=== PATIENT | male | born 1955 ===

== ENCOUNTER 2017-08-21 11:14 | Outpatient (CLI) | payer MEDICARE, MEDICAID ==
[~2017-08-21] VITALS: Ht 170.2 cm; Wt 81.8 kg
--- NOTE | ~2017-08-21 | HEMODYNAMI ---
PATIENT:SANTANA FERNÁNDEZ MEDICAL RECORD: [id number] : 57 LOCATION:[facility] ADMISSION DATE: 08/21/17 Generatedon:08/21/201713:12 Patient name: SANTANA FERNÁNDEZ Patient #: [id number] SSN: DO B: 1955 Date of study: 08/21/2017 Page: Of Hemodynamic Procedure Report Patient Data Patient Demographics Procedure consent was obtained First Name: SANTANA Gender: Male Last Name: PRADEEP : 1955 [facility] Initial: J Age: 61 year(s) Patient #: [id number] Race: Unknown Additional ID: [id number] Contact details [address]: [address] [place] [address] State: [place] City: [place] Zip code: [address] Past Medical History Allergies: No known allergies Admission Admission Data Admission Date: 08/21/2017 Admission Time: 11:14 Lab Results Lab Result Date: 08/21/2017 Lab Result Time: 0:00 Biochemistry Name Units Result Min Max BUN mg/dl 12 --(-*--)-- 7 18 Creatinine mg/dl 0.9 --(-*--)-- 0.6 1.3 CBC Name Units Result Min Max Hemoglobin g/dl 12.6 -*(----)-- 13.5 17.5 Procedure Procedure Types Cath Procedure Diagnostic Procedure [facility] w/Coronaries Sedation Charges Moderate Sedation up to 15 minutes Procedure Description Procedure Date Procedure Date: 08/21/2017 Procedure Start Time: 12:55 Procedure End Time: 13:10 Procedure Staff Name Function Lb Tejada MD Performing Physician Stephanie Berman RT Monitor Corrine Ferraro RN Nurse Kurt Caraballo RT Scrub Procedure Data Cath Procedure Fluoroscopy Diagnostic fluoroscopy Total fluoroscopy Time: 1.7 time: 1.7 min min Diagnostic fluoroscopy Total fluoroscopy dose: 725 dose: 725 mGy mGy Contrast Material Contrast Material Type Amount (ml) Isovue 370 76 Entry Location Entry Primary Successful Side Size Upsize Upsize Entry Closure Succes sful Closure Location (Fr) 1 (Fr) 2 (Fr) Remarks Device Remarks Femoral Right 5 Fr Exoseal artery Estimated blood loss: 5 ml Diagnostic catheters Device Type Used For End Catheter Placement MULTIPACK JL 4.0 5Fr Procedure catheter MULTIPACK 3DRC 5Fr Procedure catheter MULTIPACK Pigtail 5 Fr Procedure catheter Procedure Complications No complications Procedure Medications Medication Administration Route Dosage Oxygen NC 2 l/min Lidocaine 2% added to field 20 Heparin Flush Bag added to field 2 bags (1000units/500ml NS) 0.9% NaCl I.V. 100 ml/hr Versed I.V. 1 mg Fentanyl I.V. 50 mcg Versed I.V. 0.5 mg Fentanyl I.V. 25 mcg Hemodynamics Rest HGB: 12.6 (g/dl) Heart Rate: 50 (bpm) Pressure Samples Time Site Value (mmHg) Purpose Heart Use Rate(bpm) 13:02 LV 142/8,29 Snapshot 55 13:03 AO 140/79(105) Pullback 58 13:03 LV 144/10,32 Pullback 58 Gradients Valve Time Site 1 Site 2 Mean SEP/DFP Peak To Heart Use (mmHg) (sec/min) Peak Rate (mmHg) (bpm) Aortic 13:03 LV AO 8 16 4 58 144/10,32 140/79(105) Calculations Valve P-P Mean Valve Index Valve Source Name Gradient Area Flow (cm2) Aortic 4 8 4 8 Snapshots Pre Cath Intra NCS Post Cath Vital Signs Time Heart Resp SPO2 etCO2 NIBP (mmHg) Rhythm Pain Sedation Rate (ipm) (%) (mmHg) Status Level (bpm) 12:43:00 49 17 96 0 No Cuff NSR 0 (11) 10(A) , No pain 12:44:24 49 16 96 0 159/103(144) NSR 0 (11) 10(A) , No pain 12:49:10 50 15 99 0 157/95(137) NSR 0 (11) 10(A) , No pain 12:53:53 53 13 98 0 144/96(122) NSR 0 (11) 9(A) , No pain 12:58:38 53 14 99 0 137/95(111) NSR 0 (11) 9(A) , No pain 13:03:14 58 12 99 0 125/90(113) NSR 0 (11) 9(A) , No pain 13:07:55 56 14 99 0 136/87(107) NSR 0 (11) 10(A) , No pain Medications Time Medication Route Dose Verified Delivered Reason Notes Effe ctiveness by by 12:46:43 Oxygen NC 2 Lb Buffie used for l/min Terrell Ferraro RN procedure 12:46:50 Lidocaine 2% added 20ml Lb Lb for local to vial Terrell Tejada MD anesthetic field 12:46:59 Heparin Flush added 2 Lb Lb used for Bag to bags Terrell Tejada MD procedure (1000units/500ml field NS) 12:47:07 0.9% NaCl I.V. 100 Lb Buffie Per ml/hr Terrell Ferraro RN physician 12:51:40 Versed I.V. 1 mg Lb Buffie for Terrell Ferraro RN sedation 12:51:46 Fentanyl I.V. 50 Lb Buffie for mcg Terrell Ferraro RN sedation 12:53:38 Versed I.V. 0.5 Lb Buffie for mg Terrell Ferraro RN sedation 12:53:42 Fentanyl I.V. 25 Lb Buffie for mcg Terrell Ferraro RN sedation Procedure Log Time Note 12:21:06 Kurt Caraballo RT(R) sent for patient. Start room use. 12:21:07 Time tracking: Regular hours (M-F 7:00 - 5:00) 12:21:12 Plan of Care:Hemodynamics will remain stable., Cardiac rhythm will remain stable., Comfort level will be maintained., Respiratory function will remain adequate., Patient/ family verbilizes understanding of procedure., Procedure tolerated without complication., Recovers from procedure without complications.. 12:32:25 Lab Result : BUN 12 mg/dl 12:32:25 Lab Result : Hemoglobin 12.6 g/dl 12:32:25 Lab Result : Creatinine 0.9 mg/dl 12:34:30 Patient received from Pre/Post Procedure Room to CCL 1 Alert and oriented. Tansferred to table in Supine position. 12:34:31 Warm blankets applied, and lorna hugger turned on for patient comfort. 12:34:32 Correct patient and procedure confirmed by team. 12:34:33 Signed procedure consent form obtained from patient. 12:34:35 ECG and BP/O2 sat monitors applied to patient. 12:42:09 Vital chart was started 12:46:43 Oxygen 2 l/min NC was administered by Corrine Ferraro RN; used for procedure; 12:46:50 Lidocaine 2% 20ml vial added to field was administered by Lb Tejada MD; for local anesthetic; 12:46:59 Heparin Flush Bag (1000units/500ml NS) 2 bags added to field was administered by Lb Tejada MD; used for procedure; 12:47:07 0.9% NaCl 100 ml/hr I.V. was administered by Corrine Ferraro RN; Per physician; 12:48:19 Baseline sample Acquired. 12:48:21 Rhythm: sinus bradycardia 12:48:23 Full Disclosure recording started 12:48:46 H&P Date Dictated: 08/21/2017 Within 30 days and on chart., H&P Addendum completed by physician on day of procedure. (MUST COMPLETE FOR ALL OUTPATIENTS). 12:48:48 Pre-procedure instructions explained to patient. 12:48:48 Pre-op teaching completed and patient verbalized understanding. 12:48:50 Family in patients room. 12:48:51 Patient NPO since Midnight. 12:49:02 Patient allergic to No known allergies 12:49:04 Is the patient allergic to Iodine/contrast media? No. 12:49:06 Is patient on blood thinner?No 12:49:08 Patient diabetic? Yes. 12:49:09 If diabetic: On Metformin? Yes 12:49:10 If on Metformin: Last Dose? 08/20/2017 12:49:14 Previous problem with sedation/anesthesia? No ? 12:49:14 Snore? Yes 12:49:15 Sleep apnea? Yes 12:49:16 Deviated septum? No 12:49:17 Opens mouth fully? Yes 12:49:18 Sticks out tongue? Yes 12:49:20 Airway obstruction? No ? 12:49:25 Dentures? No ? 12:49:29 Pre procedure: right dorsailis pedis pulse 1+ Palpable, but thready & weak; easily obliterated 12:49:32 Patient pain scale 0/10 ?. 12:49:41 IV patent on arrival in right forearm with 0.9% NaCl at [facility]. 12:49:44 Lab results completed and on chart. 12:49:47 Right groin area was prepped with chlora-prep and draped in sterile fashion 12:49:48 Alarms reviewed by R. N. 12:49:49 Sharps counted by scrub and verified by R.N. 12:49:50 --------ALL STOP TIME OUT------ 12:49:50 Final Timeout: patient, procedure, and site verified with staff and physician. All members of the team are in agreement. 12:49:52 Right groin site verified by team. 12:49:56 Physical assessment completed. ASA score P 2 - A patient with mild systemic disease as per Lb Tejada MD. 12:49:58 Sedation plan: IV Moderate Sedation Medication:Versed, Fentanyl 12:50:10 Use device set Femoral Dx 12:50:11 ACIST Syringe (34673) opened to sterile field. 12:50:12 Bag Decanter (2002S) opened to sterile field. 12:50:13 ACIST Hand Control (63497) opened to sterile field. 12:50:13 ACIST Manifold (97484) opened to sterile field. 12:50:14 Tegaderm 4 x 4 (1626W) opened to sterile field. 12:50:16 Medline Cath Pack ([id number]) opened to sterile field. 12:50:17 DIAGNOSTIC WIRE .035 260cm J wire (074641) opened to sterile field. 12:50:18 DIAGNOSTIC Multipack 5Fr catheter set ([id number]) opened to sterile field. 12:50:19 SHEATH Prelude 5Fr 0.035 ([id number]-46-035) opened to sterile field. 12:51:40 Versed 1 mg I.V. was administered by Corrine Ferraro RN; for sedation; 12:51:46 Fentanyl 50 mcg I.V. was administered by Corrine Ferraro RN; for sedation; 12:53:38 Versed 0.5 mg I.V. was administered by Corrine Ferraro RN; for sedation; 12:53:42 Fentanyl 25 mcg I.V. was administered by Corrine Ferraro RN; for sedation; 12:54:54 Procedure started. 12:55:01 Local anesthetic to right femoral artery with Lidocaine 2% by Lb Tejada MD.INITIAL ACCESS ONLY 12:55:16 A 5 Fr sheath was inserted into the Right Femoral artery 12:55:36 Zero performed for pressure channel P1 12:57:22 A MULTIPACK JL 4.0 5Fr catheter was advanced over the wire and used for Procedure. 12:59:09 LCA angiography performed. 12:59:26 Catheter exchanged over wire. 13:00:04 A MULTIPACK 3DRC 5Fr catheter was advanced over the wire and used for Procedure. 13:01:20 RCA angiography performed. 13:01:23 Catheter exchanged over wire. 13:02:00 A MULTIPACK Pigtail 5 Fr catheter was advanced over the wire and used for Procedure. 13:02:11 Injector settings: Ml/sec: 10, Volume: 20, 13:02:14 LV gram done using MANCILLA 13:03:11 LV hemodynamics recorded. 13:03:34 EF : 55 % 13:05:39 Catheter removed. 13:06:08 EXOSEAL 5Fr (EX500) opened to sterile field. 13:06:22 Sheath removed intact; hemostasis achieved with Exoseal to the Right Femoral artery. 13:07:16 Procedure ended.(Physican Out) 13:07:28 Fluoroscopy time 01.70 minutes. 13:07:31 Fluoroscopy dose: 725 mGy 13:07:31 Flurop Dose total: 725 13:07:37 Contrast amount:Isovue 370 76ml. 13:07:39 Sharps counted by scrub and verified by R.N. 13:07:42 Insertion/operative site no bleeding no hematoma. 13:07:45 Post-op/insertion site Right Femoral artery dressed using a 4 x 4 and Tegaderm. 13:07:49 Post right femoral artery:stable, soft, clean and dry 13:07:52 Post procedure: right dorsailis pedis pulse 1+ Palpable, but thready & weak; easily obliterated. 13:07:55 Post-procedure physical assessment completed. ASA score P 2 - A patient with mild systemic disease as per Lb Tejada MD. 13:07:57 Post procedure rhythm: unchanged. 13:07:59 Estimated blood loss: 5 ml 13:08:00 Post procedure instruction explained to patient.Patient verbalizes understanding. 13:08:02 Patient needs reinforcement of post procedure teaching. 13:08:42 Procedure type changed to Cath procedure, Diagnostic procedure, LHC, LHC w/Coronaries, Sedation Charges, Moderate Sedation up to 15 minutes 13:09:15 Procedure and supply charges have been captured, reviewed, submitted and are correct. 13:09:17 Procedure Complication : No complications 13:10:09 Vital chart was stopped 13:10:10 See physician's report for complete and final results. 13:10:13 Report given to Pre/Post Procedure Room. 13:10:16 Patient transfered to Pre/Post Procedure Room with Bed. 13:10:18 Procedure ended. 13:10:18 Full Disclosure recording stopped 13:10:22 End room use (Document Last) Device Usage Item Name Manufacture Quantity Catalog Number Hospital Part Current M inimal Lot# / Charge Number Stock Stock Serial# Code ACIST Syringe Acist 1 45625 544829 [id number] [id number] 2 0 (02116) [employer] Bag Decanter Microtek 1 2001S 080181 45217 002053 5 (2001S) Medical Inc. ACIST Hand Acist 1 62477 154876 800911 800141 5 Control (74123) [employer] ACIST Manifold Acist 1 42662 725668 180582 062601 5 (39161) Medical [employer] Inc Tegaderm 4 x 4 3M 1 1626W 736770 728965 989834 5 (1626W) Medline Cath Cardinal 1 [id number] 392987 52758 418424 5 Pack Health ([id number]) DIAGNOSTIC WIRE [facility] [place] 1 495054 724418 187974 343415 3 0 .035 260cm J wire (408762) DIAGNOSTIC Cardinal 1 OE0154 108561 70170 838581 3 0 Multipack 5Fr Health catheter set ([id number]) SHEATH Prelude Merit 1 [id number] 602239 861935 492235 5 5Fr 0.035 Medical ([id number]-[id number]-[id number]) MULTIPACK JL Cardinal 1 176568 5 4.0 5Fr Health catheter MULTIPACK 3DRC Cardinal 1 [id number] 5 5Fr catheter Health MULTIPACK Cardinal 1 656875 5 Pigtail 5 Fr Health catheter EXOSEAL 5Fr Cardinal 1 EX500 332250 353872 944124 1 0 (EX500) Health Signature Audit [place] Stage Time Signature Unsigned Intra-Procedure 08/21/2017 Stephanie Cullen 1:12:49 PM RT(R) Signatures Monitor : Stephanie Cullen Signature : RT Date : Time : [place] [address] [place] [address]
[2017-08-21] MEDS ORDERED: ZOLOFT25 MG PO (11:54)
[2017-08-21] MEDS ORDERED: TRAZODONE HCL150 MG PO (11:55)
[2017-08-21] MEDS ORDERED: SEROQUEL25 MG PO (11:55)
[2017-08-21] MEDS ORDERED: LIPITOR40 MG PO (11:56)
[2017-08-21] MEDS ORDERED: CATAPRES TTS-20.2 MG TD (11:56)
[2017-08-21] MEDS ORDERED: CYCLOBENZAPRINE10 MG PO (11:56)
[2017-08-21] MEDS ORDERED: BACLOFEN10 MG PO (11:57)
[2017-08-21] MEDS ORDERED: METFORMIN HCL500 M1 PO (11:57)
[2017-08-21] MEDS ORDERED: NORCO 7.5/325 T1 TA1 PO (11:57)
[2017-08-21] MEDS ORDERED: ZESTRIL40 MG PO (11:58)
[2017-08-21] MEDS ORDERED: LYRICA200 MG PO (11:58)
[2017-08-21] MEDS ORDERED: NORVASC10 MG PO (11:58)
[2017-08-21] MEDS ORDERED: COREG12.5 MG PO (11:59)
[2017-08-21 12:07] VITALS: BP 161/94; Ht 170.2 cm; Wt 81.8 kg
[2017-08-21 12:18] LABS: CALC OSMOLALITY 282 mosm/kg (275-300); CALCIUM 8.9 mg/dL (8.5-10.1); CARBON DIOXIDE 32.2 mmol/L (21.0-32.0); CHLORIDE - SERUM 103 mmol/L (98-107); CREATININE - SERUM 0.9 mg/dL (0.6-1.3); GLUCOSE 92 mg/dL (74-106); POTASSIUM - SERUM 3.9 mmol/L (3.5-5.1); SODIUM 142 mmol/L (136-145); UREA NITROGEN 12 mg/dL (7-18); eGFR NON AFRICAN AMERICAN > 90 mL/min (90-120)
[2017-08-21 12:28] LABS: BASOPHILS 0.9 % (0-2); EOSINOPHILS 5.7 % (0-7); HEMATOCRIT 38.8 % (42.0-54.0); HEMOGLOBIN 12.6 g/dL (13.5-17.5); IMMATURE GRANULOCYTES 0.2 % (0-5); LYMPHOCYTES 38.2 % (15-50); MCHC 32.5 g/dL (31.0-37.0); MCV 92.4 fL (80.0-100.0); MEAN PLATELET VOLUME 11.6 fL (7.4-10.4); MONOCYTES 11.1 % (2-11); NEUTROPHILS 43.9 % (40-80); PLATELET COUNT 205 10x3/uL (130-400); RDW 14.2 % (11.5-14.5); WBC 4.2 10x3/uL (4.8-10.8)
== END 2017-08-21 16:35 | disposition home or self-care (01) ==
LOC: D.CATH 11:14
PROVIDERS: Internal Medicine Cardiovascular Disease
DX: I25.119 Atherosclerotic heart disease of native coronary artery with unspecified angina pectoris (principal); Z86.711 Personal history of pulmonary embolism; I10 Essential (primary) hypertension; I25.2 Old myocardial infarction; I69.354 Hemiplegia and hemiparesis following cerebral infarction affecting left non-dominant side; E11.9 Type 2 diabetes mellitus without complications; Z79.891 Long term (current) use of opiate analgesic; Z79.84 Long term (current) use of oral hypoglycemic drugs; Z79.899 Other long term (current) drug therapy; Z01.812 Encounter for preprocedural laboratory examination